=== PATIENT | male | born 1950 | race Caucasian/White ===

== ENCOUNTER 2018-04-02 13:07 | Inpatient (IN) | payer MEDICARE, MEDICAID ==
[~2018-04-02] VITALS: Ht 177.8 cm; Wt 84.4 kg
--- NOTE | 2018-04-02 13:10 | NUR ---
PT BIB DAUGHTER C/O CHEST PAIN AND DIZZINESS. PT ON MONITOR IN BED 7. WILL CONTINUE TO MONITOR.
--- NOTE | 2018-04-02 13:29 | NUR ---
LUPE AT BEDSIDE FOR EKG
--- NOTE | 2018-04-02 13:30 | NUR ---
PHLEB AT BEDSIDE FOR LAB DRAW
--- NOTE | 2018-04-02 13:33 | NUR ---
RADIOLOGY AT BEDSIDE FOR CXR
[2018-04-02 13:35] LABS: BASOPHILS # (AUTO) 0.1 /CMM (0.0-0.2); BASOPHILS % (AUTO) 0.9 % (0.0-2.0); EOSINOPHILS % (AUTO) 0.5 % (0.0-6.0); HEMATOCRIT 42 % (39-51); HEMOGLOBIN 14.4 g/dL (13.5-17.5); LYMPHOCYTES # (AUTO) 2.7 /CMM (0.8-4.8); LYMPHOCYTES % (AUTO) 26.3 % (20.0-44.0); MEAN CORPUSCULAR HGB CONC 35 g/dl (31.0-36.0); MEAN CORPUSCULAR VOLUME 98 fL (80-96); MONOCYTES # (AUTO) 0.5 /CMM (0.1-1.30); MONOCYTES % (AUTO) 5.3 % (2.0-12.0); NEUTROPHILS # (AUTO) 6.8 /CMM (1.8-8.9); PLATELET COUNT (AUTO) 200 /CMM (150-450); RED BLOOD CELL COUNT(AUTO) 4.28 MIL/uL (4.5-6.0); WHITE BLOOD COUNT (AUTO) 10.1 K/uL (4.3-11.0)
[2018-04-02 13:43] LABS: CALCIUM, SERUM 9.1 mg/dL (8.5-10.1); CARBON DIOXIDE 29 mmol/L (21-32); CHLORIDE 100 mmol/L (98-107); CREATININE 0.9 mg/dL (0.6-1.3); GLUCOSE 176 mg/dL (74-106); POTASSIUM 3.2 mmol/L (3.5-5.1); SODIUM SERUM 138 mmol/L (136-145); UREA NITROGEN, BLOOD 17 mg/dL (7-18)
[2018-04-02 13:56] LABS: ALANINE AMINOTRANSFERASE 27 U/L (12-78); ALBUMIN 3.9 g/dL (3.4-5.0); ALKALINE PHOSPHATASE 37 U/L (46-116); ASPARTATE AMINOTRANSFERASE 13 U/L (15-37); B-TYPE NATRIURETIC PEPTIDE 44 PG/ML (0-125); BILIRUBIN,DIRECT 0.1 mg/dL (0.0-0.2); BILIRUBIN,TOTAL 0.4 mg/dL (0.2-1.0)
[2018-04-02] MEDS ORDERED: CHOL20004 PO (14:11)
[2018-04-02] MEDS ORDERED: CYAN1TAB15 PO (14:11)
[2018-04-02] MEDS ORDERED: ASPI-1152 PO (14:11)
[2018-04-02] MEDS ORDERED: MECL-102 PO (14:22)
[2018-04-02] MEDS ORDERED: VALS80TA2 PO (14:22)
[2018-04-02] MEDS ORDERED: VALS1TAB4 PO (14:42)
--- NOTE | 2018-04-02 15:48 | NUR ---
REPORT GIVEN TO LOURDES PRADO FOR SUNIL
--- NOTE | 2018-04-02 16:30 | NUR ---
electronic industrial controls mechanic Note Patient arrived to unit, paged Dr. Nicholson for admitting orders.
--- NOTE | 2018-04-02 16:45 | NUR ---
absence management consultant Opening Note Patient arrived to unit from ED in stable condition via gurney accompanied by Marie from ED, transport and family members. Patient is awake, alert and oriented x 4. Primarily Bel[place]ian speaking but understands Chadian. Able to make needs known, no complaints of chest pain, shortness of breath or signs of distress at this time. Respirations even and unlabored, saturating on room air. On orbitread operator, sinus rhythm at 73 bpm. Peripheral IV to the left AC 20 gauge, intact, patent and saline locked. Skin assessment completed, skin intact. Ambulates with steady gait. Patient's belongings accounted for and acknowledged via signature on belongings form, placed in chart. Safety and Fall precautions in place: bed in lowest and locked position, side rails up x2, call light and personal possessions within reach. Patient and family oriented to room, call light and safety measures. Patient verbalized understanding of safety measures and current plan of care. Awaiting admitting orders from Dr. Nicholson. Will continue to monitor and intervene as needed.
[2018-04-02 16:53] VITALS: BP 145/85
[2018-04-02 18:00] VITALS: BP 145/85
--- NOTE | 2018-04-02 18:32 | NUR ---
cook apprentice Closing Note Patient resting comfortably in bed. Patient is awake, alert and oriented x 4. Primarily Swedish speaking but understands German. Able to make needs known, no complaints of chest pain, shortness of breath or signs of distress at this time. Respirations even and unlabored, saturating on room air. On potline monitor, sinus rhythm at 74 bpm. Peripheral IV to the left AC 20 gauge, intact, patent and saline locked. Safety and Fall precautions in place: bed in lowest and locked position, side rails up x2, call light and personal possessions within reach. Patient verbalized understanding of safety measures and current plan of care. No acute events. Followed up with MD, awaiting admitting orders from Dr. Nicholson. Will endorse to mini shifter RN for continuity of care.
[2018-04-02] MEDS ORDERED: Z GUARD REMEDY 2 OZ OINT TP PRN (19:00)
[2018-04-02] MEDS ORDERED: MAG HYDROX/AL HYDROX/SIMETH 30 ML UDC PO PRN (19:00)
[2018-04-02] MEDS ORDERED: ONDANSETRON HCL/PF 4 MG/2 ML VIAL IVP PRN (19:00)
[2018-04-02] MEDS ORDERED: ACETAMINOPHEN 325 MG TABLET PO PRN (19:00)
[2018-04-02] MEDS ORDERED: MAGNESIUM HYDROXIDE 30 ML UDC PO PRN (19:00)
[2018-04-02] MEDS ORDERED: ZOLPIDEM TARTRATE 5 MG TABLET PO PRN (19:00)
[2018-04-02] MEDS ORDERED: HYDROCODONE/APAP 5/325MG 1 EACH TABLET PO PRN (19:00)
[2018-04-02] MEDS ORDERED: POTASSIUM CHLORIDE 20 MEQ TAB.PRT.SR PO ONE (19:30)
--- NOTE | 2018-04-02 19:30 | NUR ---
RECEIVED PT IN BED AWAKE AND ALERT. BREATHING EVENLY. NO SOB., NAD . SKIN WARM AND DRY. SR ON TELE MONITOR, DENIED CP. BUT STILL WITH OCCASIONAL DIZZINESS. NEEDS ATTENDED . BED LOCKED. CALL LIGHT WITHIN REACH . WILL CONT TO MONITOR ,
[2018-04-02 20:00] VITALS: BP 125/71
[2018-04-03] VITALS: BP 102/50
[2018-04-03 04:00] VITALS: BP 100/63
[2018-04-03 06:13] LABS: BASOPHILS # (AUTO) 0.1 /CMM (0.0-0.2); BASOPHILS % (AUTO) 0.6 % (0.0-2.0); EOSINOPHILS % (AUTO) 0.8 % (0.0-6.0); HEMATOCRIT 42 % (39-51); HEMOGLOBIN 14.2 g/dL (13.5-17.5); LYMPHOCYTES % (AUTO) 30.3 % (20.0-44.0); MEAN CORPUSCULAR HGB CONC 34 g/dl (31.0-36.0); MEAN CORPUSCULAR VOLUME 98 fL (80-96); MONOCYTES # (AUTO) 0.6 /CMM (0.1-1.30); MONOCYTES % (AUTO) 5.9 % (2.0-12.0); NEUTROPHILS # (AUTO) 6.3 /CMM (1.8-8.9); NEUTROPHILS % (AUTO) 62.4 % (43.0-81.0); PLATELET COUNT (AUTO) 183 /CMM (150-450); RED BLOOD CELL COUNT(AUTO) 4.26 MIL/uL (4.5-6.0); WHITE BLOOD COUNT (AUTO) 10.1 K/uL (4.3-11.0)
[2018-04-03 06:35] LABS: CREATININE 1.1 mg/dL (0.6-1.3); PHOSPHORUS 3.8 mg/dL (2.5-4.9)
[2018-04-03 06:39] LABS: THYROID STIMULATING HORMONE 2.699 uIU/mL (0.358-3.74)
--- NOTE | 2018-04-03 06:51 | NUR ---
PT IN BED SLEEPING AROUSES EASILY. BREATHING EVENLY. NO SOB. NAD. NO C/O CP. SR ON TELE MONITOR, NEEDS ATTENDED. BED LOW LOCKED.CALL LIGHT WITHIN REACH. WILL CONT TO MONITOR AND WILL ENDORSE TO AM SHIFT FOR SUNIL,.
[2018-04-03] MEDS ORDERED: PANTOPRAZOLE 40 MG TABLET.DR PO SCH (07:30)
--- NOTE | 2018-04-03 07:44 | NUR ---
BACKPACKERS MANAGER OPENING NOTES RECEIVED PT FROM NIGHTSHIFT NURSE IN STABLE CONDITION. PT IS A/O X3. NO SOB OR ACUTE SIGNS OF DISTRESS NO ALEXIA. BREATHING IS EVEN AND UNLABORED. PT ON RA AND SATING WELL. HE DENIES ANY CHEST PAIN AT THIS TIME. PT CURRENTLY SINUS RHYTHM ON THE TELE MONITOR WITH A CURRENT HR OF 83. IV TO LEFT AC NOTED TO BE PATENT AND INTACT. NO REDNESS OR SIGNS OF INFILTRATION NOTED. BED IN LOW LOCKED POSITION, SIDE RAILS UP X2, CALL LIGHT WITHIN REACH. WILL CONTINUE TO MONITOR
[2018-04-03 08:00] VITALS: BP_SYST 120; BP_SYST 125; BP_DIAS 55; BP_DIAS 65
[2018-04-03] MEDS: IV NS 0.9% 1,000 ML IV SCH ×2 (09:11→13:10)
[2018-04-03] MEDS ORDERED: METO25TA3 PO (09:42)
[2018-04-03] MEDS ORDERED: ATOR20TA PO (09:46)
[2018-04-03 09:59] VITALS: BP 125/73
[2018-04-03] MEDS ORDERED: METOPROLOL SUCCINATE 25 MG TAB.SR.24H PO SCH ×2 (10:00)
--- NOTE | 2018-04-03 10:09 | NUR ---
MS RN NOTES: CTA CANCELLATION PT REFUSING CTA. DR INGRAM AT BEDSIDE AND MADE AWARE. PER MD, "HAVE PT COMPLETE THE CAROTID US, RELAY THE RESULTS BACK TO ME, AND HE CAN BE DISCHARGED ACCORDINGLY"
[2018-04-03] MEDS ORDERED: ASPIRIN 81 MG TAB.CHEW PO SCH (11:00)
--- NOTE | 2018-04-03 12:15 | NUR ---
MS RN NOTES: HEAD CT RESULTS DR INGRAM NOTIFIED OF PT'S HEAD CT RESULTS. NO NEW ORDERS GIVEN BY MD. 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 PT NECROLOGICAL STATUS REMAINS THE SAME AND INTACT. HE DENIES DIZZINESS AT THIS TIME
--- NOTE | 2018-04-03 15:31 | NUR ---
MS PERSONNEL RESEARCH SCIENTIST NOTES PT WAS DISCHARGED FROM FACILITY IN STABLE CONDITION. ALL NEEDS WERE MET DURING SHIFT AND ORDERS CARRIED OUT ACCORDINGLY ALL DUE MEDS GIVEN. RESULTS OF CAROTID ULTRASOUND REVIEWED WITH DR. INGRAM. PER , "PT IS CLEARED FOR D/C". EXITCARE MATERIALS ALONG WITH ALL D/C INSTRUCTIONS WERE REVIEWED WITH PT. EDUCATION ON NEW PRESCRIPTIONS PROVIDED. PT WAS FURTHER PROVIDED WITH GIVEN A MULTIDISCIPLINARY APPOINTMENT REMINDER. HE VERBALIZED FULL UNDERSTANDING OF ALL D/C INSTRUCTIONS. IV WAS SUCCESSFULLY REMOVED WITH CATHETER TIP FULLY INTACT. ALL BELONGINGS VERIFIED PRIOR TO D/C. HE WAS SAFELY ESCORTED TO THE MAIN LOBBY AND LEFT VIA PRIVATE VEHICLE
[2018-04-03] MEDS ORDERED: ATORVASTATIN 40 MG TABLET PO SCH (22:00)
== END 2018-04-03 15:25 | disposition home or self-care (01) | DRG 206 ==
LOC: ER 13:11 → TELE 16:16 → MED 04-03 08:21
PROVIDERS: ADMIT Student in an Organized Health Care Education/Training Program; ATTEND Internal Medicine
DX: M94.0 Chondrocostal junction syndrome [Tietze] (principal); E87.6 Hypokalemia; E78.5 Hyperlipidemia, unspecified; I10 Essential (primary) hypertension; F17.210 Nicotine dependence, cigarettes, uncomplicated; H81.399 Other peripheral vertigo, unspecified ear; Z71.6 Tobacco abuse counseling; R00.2 Palpitations
CPT/HCPCS: 36415; 70450-TC; 71045-TC; 80048-TC; 80061-TC; 80076-TC; 83735-TC; 83880; 84100-TC; 84443-TC; 84484-TC; 85025-TC; 85730-TC; 93307-TC; 93880-TC; A4606; G0378; J7030; Z7610

== ENCOUNTER 2024-04-02 19:17 | Emergency (ER) | payer MEDICARE, OTHER ==
[~2024-04-02] VITALS: Ht 172.7 cm; Wt 78.0 kg
[~2024-04-02 19:17] MED LIST: ASPI-1420 PO; ATOR20TA PO; CHOL20004 PO; MECL-159 PO; METO25TA3 PO
[2024-04-02 20:19] VITALS: BP 127/66; TEMP 97.8
[2024-04-02] MEDS ORDERED: IBUP-1490 PO (21:08)
[2024-04-02 21:43] VITALS: O2SAT 97
== END 2024-04-02 21:44 | disposition home or self-care (01) ==
LOC: ER 19:40
DX: J06.9 Acute upper respiratory infection, unspecified (principal); B97.89 Other viral agents as the cause of diseases classified elsewhere; E78.00 Pure hypercholesterolemia, unspecified; I10 Essential (primary) hypertension; Z79.82 Long term (current) use of aspirin; Z79.899 Other long term (current) drug therapy; Z20.822 Contact with and (suspected) exposure to COVID-19
CPT/HCPCS: 71045-TC